=== PATIENT | female | born 1990 | race Caucasian/White ===

== ENCOUNTER → 2017-05-08 | Outpatient (CLI) | payer BC | LOC: LAB 12:01 | PROVIDERS: ATTEND Family Medicine | DX: N91.2 Amenorrhea, unspecified (principal) | CPT/HCPCS: 36415; 84702 ==

== ENCOUNTER → 2017-05-10 | Outpatient (CLI) | payer BC ==
--- NOTE | 2017-05-11 18:34 | DI ---
OBSTETRICAL ULTRASOUND, 05/10/2017 10:06 AM: Clinical History: Verify dates. Previous Exam: None at this facility for this . LMP: 03/20/2017. There is a single live IUP currently in unstable position. Amnionic fluid content is normal. The plac enta is indeterminant in location. heart rate is 149 beats/minute and regular. There is a corpu s luteum cyst of the left ovary. The right ovary is normal. The sac is visualized. CRL measurement is 9 mm. This measurement corresponds to an EGA value of 7 weeks 0 days. The US EDC is 12/24/2017. EDC b y LMP is 12/25/2017. Readin. Single live fetus with unstable presentation and normal amniotic fluid content. 2. The composite EGA is 7 weeks 0 days with an ultrasound EDC of 12/24/2017. Based on the LMP of 03/20, the EDC would be 12/25/2017.
== END ==
LOC: US 09:56
PROVIDERS: ATTEND Family Medicine
DX: Z36 Encounter for antenatal screening of mother (principal)
CPT/HCPCS: 76801

== ENCOUNTER → 2017-06-03 | Outpatient (CLI) | payer BC ==
[2017-06-03 12:03] LABS: HEMATOCRIT 41.8 % (37.0-47.0); HEMOGLOBIN 14.4 g/dL (12.0-16.0); RED BLOOD COUNT 4.88 10^6/uL (4.20-5.40)
[2017-06-03 12:04] LABS: BASOPHILS % (AUTO) 0.7 % (0-1); EOSINOPHILS # (AUTO) 0.19 10*3/UL; EOSINOPHILS % (AUTO) 1.3 % (0-8); LYMPHOCYTES # (AUTO) 2.21 10*3/uL; MEAN CORPUSCULAR HEMOGLOBIN 29.5 PG (27-31); MEAN CORPUSCULAR HGB CONC 34.4 g/dL (33-37); MEAN CORPUSCULAR VOLUME 85.7 FL (81-99); MEAN PLATELET VOLUME 10.2 FL (7.4-12.2); MONOCYTES # (AUTO) 0.82 10*3/UL (0.3-0.8); MONOCYTES % (AUTO) 5.5 % (5-15); NEUTROPHILS # (AUTO) 11.44 10*3/UL; NEUTROPHILS % (AUTO) 76.9 % (50-80); PLATELET MORPHOLOGY COMMENT NORMAL MORPHOLOGY (NORM); RBC MORPHOLOGY COMMENT NORMAL MORPHOLOGY (NORM); WBC MORPHOLOGY COMMENT NORMAL MORPHOLOGY (NORM)
[2017-06-03 12:30] LABS: HIV ANTIBODY NEGATIVE (N); HIV-1 P24 ANTIGEN NEGATIVE (N)
== END ==
LOC: MOB LAB 09:41
PROVIDERS: ATTEND Family Medicine
DX: Z36 Encounter for antenatal screening of mother (principal); Z3A.10 10 weeks gestation of pregnancy
CPT/HCPCS: 36415; 80081; 86900; 86901; 87088; 87491; 87591

== ENCOUNTER 2017-12-27 22:14 | Inpatient (IN) ==
[2017-12-27] MEDS ORDERED: CITRIC ACID/SODIUM CITRATE 30 ML CUP PO PRN (22:58)
[2017-12-27] MEDS ORDERED: TERBUTALINE SULFATE 1 MG/1 ML SDV SUBCUT PRN (22:58)
[2017-12-27] MEDS ORDERED: NORMAL SALINE 10 ML SYRINGE FLUSH IVP PRN (22:58)
[2017-12-27] MEDS ORDERED: Lidocaine 1% 10 MG/ML - 20 ML VIAL SUBCUT PRN (22:58)
[2017-12-27] MEDS ORDERED: BUTORPHANOL TARTRATE 2 MG/1 ML VIAL IVP PRN (22:58)
[2017-12-27] MEDS ORDERED: LIDOCAINE HCL 2 % 10 ML JELLY URO-JECT TOPICAL PRN (22:58)
[2017-12-27] MEDS ORDERED: Phenylephrine Inj 50 MCG in Normal Saline Flush 0.5 ML IVP PRN (22:58)
[2017-12-27] MEDS ORDERED: OXYTOCIN 10 UNIT/1 ML IM PRN (22:58)
[2017-12-27] MEDS ORDERED: Naloxone Inj 0.01 MG in Normal Saline Flush 1 ML IVP PRN (22:58)
[2017-12-27] MEDS ORDERED: NALOXONE 0.4 MG/1 ML VIAL IVP PRN (22:58)
[2017-12-27] MEDS ORDERED: Metoclopramide Inj 10 MG/2 ML VIAL IV PRN (22:58)
[2017-12-27] MEDS ORDERED: CALCIUM CARBONATE 500 MG (TUMS) CHEWABLE TABLET PO PRN (22:58)
[2017-12-27] MEDS ORDERED: METHYLERGONOVINE MALEATE 0.2 MG/1 ML VIAL IM PRN (22:58)
[2017-12-27] MEDS ORDERED: LIDOCAINE W/ SODIUM BICARB 0.5 ML SYR SUBD PRN (22:58)
[2017-12-27] MEDS ORDERED: fentaNYL Inj 100 MCG/2 ML VIAL IV PRN (22:58)
[2017-12-27] MEDS ORDERED: ePHEDrine Inj 5 MG in Normal Saline Flush 1 ML IVP PRN (22:58)
[2017-12-27] MEDS ORDERED: ONDANSETRON 4 MG/2 ML VIAL IVP PRN (22:58)
[2017-12-27] MEDS ORDERED: Carboprost Inj 250 MCG/ML AMP IM PRN (22:58)
[2017-12-27] MEDS ORDERED: diphenhydrAMINE 50 MG/1 ML VIAL IVP PRN (22:58)
[2017-12-27] MEDS ORDERED: CefOXitin Inj 2 GM in Sodium Chloride 0.9% 100 ML IV PRN (22:58)
[2017-12-27] MEDS ORDERED: MISOPROSTOL 200 MCG TABLET RECTAL PRN (22:58)
[2017-12-27] MEDS ORDERED: Nalbuphine Inj 20 MG/ML Ampule IVP PRN (22:58)
[2017-12-27] MEDS ORDERED: Famotidine Inj 20 MG in Normal Saline Flush 10 ML IVP PRN ×4 (22:58)
[2017-12-27] MEDS ORDERED: Oxytocin 20 Units + LR 20 UNIT/1,000 ML BAG IV SCH (23:00)
[2017-12-27 23:17] LABS: Hematocrit [HCT] 40.8 % (37.0-47.0); Hemoglobin [HGB] 13.9 g/dL (12.0-16.0); MEAN CORPUSCULAR HEMOGLOBIN 29.9 PG (27-31); MEAN CORPUSCULAR HGB CONC 34.1 g/dL (33-37); MEAN CORPUSCULAR VOLUME 87.7 FL (81-99); MEAN PLATELET VOLUME 9.8 FL (7.4-12.2); RED BLOOD COUNT 4.65 10^6/uL (4.20-5.40)
[2017-12-27] MEDS: Lactated Ringers-OB Dept 1,000 ML PRIMARY IV SCH (23:21)
[2017-12-28] MEDS ORDERED: Fent/Bupiv 2mcg/0.0625% Epid 250 ML ONE (00:17)
--- NOTE | 2017-12-28 00:34 | CRNA.PROGR ---
Anesthesia Time - - Start date: 12/27/17 End date: 12/28/17 - Procedure/Recovery Time Anesthesia : Time In: 23:51 Anesthesia : Time Out: 06:35 Anesthesia : Total Time: 404 - Total Anesthesia Time Total Anesthesia Time (minutes): 404 - Other Weight: 65.317 kg Height: 5 ft 5 in Body Mass Index (BMI): 23.9 Physical Status: P2 () Anesthesia Type: Epidural
[2017-12-28] MEDS ORDERED: fentaNYL 2 MCG/BUPIVACAINE 0.0625%/NS 0.9% 250 ML BAG EPIDURAL ONE (00:39)
--- NOTE | 2017-12-28 00:39 | CRNA.PROCE ---
Central Neuraxis Block Placemt - - Safety Measures: Site Verified - - Type of Block: Epidural Reason for Block: Analgesia Moniters Used During Block: SPO2, NIBP Positioning: Sitting Skin Prep Used: ChloroPrep (Twice) Draped: Yes Skin Infiltration - Enter Amount Used in Comment Field: 1% Xylocaine (mL): Yes ( 1.0) Spinal Needle Used: 18 Hustead 80 mm (NANDA with Saline. Epidural space times 1. Used 27 gauge spinal needle to make 2 holes in dural to allow spread of epidurally administered meds.) Number of Centimeters Catheter Threaded: 3.5 Bioclusive Dressing Applied: Yes (skin prep under all adhesive.) - - Additional Details: E-natals unremarkable. Dates of 40 and 01/08 noted. Mom is small. Pt reports warm feet with test dose. placed on infusion pump starting at 0027- see orders. Anesthesia Time - Other Weight: 65.317 kg Height: 5 ft 5 in Body Mass Index (BMI): 23.9
[2017-12-28] MEDS ORDERED: NALOXONE 0.4 MG/1 ML VIAL IVP PRN (00:40)
[2017-12-28] MEDS ORDERED: Phenylephrine Inj 50 MCG in Normal Saline Flush 0.5 ML IVP PRN (00:40)
[2017-12-28] MEDS ORDERED: BUTORPHANOL TARTRATE 2 MG/1 ML VIAL IVP PRN (00:40)
[2017-12-28] MEDS ORDERED: Naloxone Inj 0.01 MG in Normal Saline Flush 1 ML IVP PRN (00:40)
[2017-12-28] MEDS ORDERED: diphenhydrAMINE 50 MG/1 ML VIAL IVP PRN ×2 (00:40→08:37)
[2017-12-28] MEDS ORDERED: ePHEDrine Inj 5 MG in Normal Saline Flush 1 ML IVP PRN (00:40)
[2017-12-28] MEDS ORDERED: Nalbuphine Inj 20 MG/ML Ampule IVP PRN ×2 (00:40→08:37)
[2017-12-28] MEDS: Lactated Ringers-OB Dept 1,000 ML PRIMARY IV SCH ×2 (02:08→09:26)
[2017-12-28] MEDS ORDERED: LANOLIN HPA 40 GM TUBE TOPICAL PRN (08:37)
[2017-12-28] MEDS ORDERED: Oxytocin 20 Units + LR 20 UNIT/1,000 ML BAG IV SCH (08:37)
[2017-12-28] MEDS ORDERED: NORMAL SALINE 10 ML SYRINGE FLUSH IVP PRN (08:37)
[2017-12-28] MEDS ORDERED: CALCIUM CARBONATE 500 MG (TUMS) CHEWABLE TABLET PO PRN (08:37)
[2017-12-28] MEDS ORDERED: ACETAMINOPHEN 325 MG TABLET PO PRN (08:37)
[2017-12-28] MEDS ORDERED: ONDANSETRON 4 MG/2 ML VIAL IVP PRN (08:37)
[2017-12-28] MEDS ORDERED: HYDROcodone-APAP 5 MG -325 MG TABLET PO PRN (08:37)
[2017-12-28] MEDS ORDERED: DIPH,PERTUSS,TET(ADACEL) VAC/PF 0.5 ML (Tdap) IM ONE (08:37)
[2017-12-28] MEDS ORDERED: Ondansetron ODT Tab 4 MG TAB PO PRN (08:37)
[2017-12-28] MEDS ORDERED: IBUPROFEN 800 MG TABLET PO PRN (08:37)
[2017-12-28] MEDS ORDERED: LIDOCAINE HCL 2 % 10 ML JELLY URO-JECT TOPICAL PRN (08:37)
[2017-12-28] MEDS ORDERED: diphenhydrAMINE 25 MG CAPSULE PO PRN (08:37)
[2017-12-28] MEDS: GLYCERIN/WITCH HAZEL 1 BOX TOPICAL PRN (09:59)
[2017-12-28] MEDS: BENZOCAINE/MENTHOL SPRAY 56 GM BOTTLE TOPICAL PRN (09:59)
[2017-12-28] MEDS: DOCUSATE 100 MG CAPSULE PO SCH (10:40)
--- NOTE | 2017-12-28 20:43 | OB.DEL.SUM ---
Delivery Note Delivery Summary: Pt is a 27 yo G1 now P1 at 40 3/7 weeks by first trimester u/s who has had latent labor for the past 2-3 days. Her cervix changed from 2 to 2-3 yesterday, so she was sent home with a few norco for pain and strict return precautions. She returned to labor and delivery last noc with frequent, painful contractions. Her cervix was 4/100/0. She was admitted. An epidural was placed for analgesia. She underwent amniotomy with the return of a scant amount of clear fluid at approximately 0030. She progressed on her own to complete cervical dilation and began pushing at 0505. Baby was initially noted to be in the occiput posterior presentation, but with pushing at +3 station, the baby did rotate 180 degrees. With the exception of variable decelerations with most pushes with quick return to baseline, baby tolerated pushing very well. She delivered a viable male infant over an intact perineum at 0630. Baby delivered in the ALEJANDRO presentation. The shoulders were delivered without difficulty. Part of the umbilical cord was draped around the baby's shoulders. The nose and mouth were suctioned with a bulb suction. Baby's was placed on mom's chest. Cord clamping was delayed for 45 seconds. The cord was then doubly clamped by myself and cut by the father of the baby. Cord blood and cord gases were obtained for analysis. The placenta delivered a short time later, spontaneously and intact, with a 3 vessel cord. She had brisk uterine bleeding, so the usual 20 mU of pitocin were infused. The bleeding continued to be heavier than normal , so 1000 mcg of cytotec were given rectally. Her bleeding decreased to more of a normal flow. The vagina and perineum were examined and bilateral labia minora lacerations were noted and repaired in the normal fashion with 3-0 vicryl rapide suture. There was excellent hemostasis.The pt's bladder was drained with a red rubber catheter with sterile technique. EBL 350cc. Baby weighed 7#5oz. Apgars were 8 at 1 minute and 10 at 5 minutes. Both mom and baby tolerated delivery well and are in stable condition at this time.
[2017-12-28] MEDS ORDERED: fentaNYL Inj 100 MCG/2 ML VIAL ONE (22:29)
[2017-12-29 04:48] LABS: Hemoglobin [HGB] 11.6 g/dL (12.0-16.0); MEAN CORPUSCULAR HEMOGLOBIN 29.7 PG (27-31); MEAN CORPUSCULAR HGB CONC 33.1 g/dL (33-37); MEAN CORPUSCULAR VOLUME 89.5 FL (81-99); MEAN PLATELET VOLUME 9.8 FL (7.4-12.2); RED BLOOD COUNT 3.91 10^6/uL (4.20-5.40)
[2017-12-29] MEDS: DOCUSATE 100 MG CAPSULE PO SCH ×2 (08:09→08:41)
[2017-12-29] MEDS: Prenatal Multivitamin Tab 1 TAB TAB PO SCH (08:41)
[2017-12-30] MEDS: DOCUSATE 100 MG CAPSULE PO SCH ×2 (07:31→08:52)
[2017-12-30] MEDS: BENZOCAINE/MENTHOL SPRAY 56 GM BOTTLE TOPICAL PRN (08:52)
[2017-12-30] MEDS: Prenatal Multivitamin Tab 1 TAB TAB PO SCH (08:52)
[2017-12-30] MEDS: GLYCERIN/WITCH HAZEL 1 BOX TOPICAL PRN (08:52)
[2017-12-30 09:11] VITALS: BP 122/84; RESP 16; TEMP 97.4; O2SAT 100
--- NOTE | 2018-01-11 19:39 | OB.PROGRES ---
Subjective Post Op Day: 1 Pain Management: PO Forman Catheter: No Flatus: Yes Diet: Regular Feeding Method: Exculsively Ambulating: Yes Concerns / Additional Information: Moderate lochia. Baby isn't breast feeding the best. Pt is a little concerned about going home (lives 90 minutes away) today secondary to this. Bilirubin is also high intermediate risk, so will need to have another bili drawn tomorrow. Objective - General General Appearance: POSITIVE: No Acute Distress, Cooperative - Cardiovacular Cardiovascular Exam: POSITIVE: RRR, No Murmur Edema: +1 Pedal Edema Extremities: Negative Andres's - Bilaterally - Respiratory Respiratory Exam: POSITIVE: Clear to Auscultation - Bilaterally, Breathing Non Labored - Abdomen Bowel Sounds: Present Assesstment / Plan (1) Status post vaginal delivery Status: Acute Assessment / Plan: -routine cares. -rh positive. -rubella immune. -breast feeding support needed, will keep in hospital additional day for this. -likely d/c home tomorrow.
--- NOTE | 2018-01-11 19:46 | DCSUMMARY ---
Hospitalization Summary Admit Date: 01/24/18 Discharge Date: 01/27/18 Primary Diagnosis:: IUP 40 3/7 weeks Secondary Diagnosis:: GBS negative Delivery Type: Vaginal Hospital Course: Pt was admitted in active labor. Had uneventful labor and delivery. For details of her delivery, please see delivery summary dictated elsewhere in the chart. / Postop Complications: Pt had an uneventful course. On the day of discharge, baby was nursing better, pain was well controlled, her lochia was normal and she was independent in her activities of daily living. She was requesting discharge home. Complications: none Exam - Vitals Vital Signs: Vital Signs Temperature 97.4 F Temperature Source Oral Pulse Rate [Pulse Oximeter] 78 Pulse Rate 84 Respiratory Rate 16 Blood Pressure [Right Arm] 122/84 Blood Pressure 125/75 Pulse Ox 100 Oxygen Delivery Method Room Air Height 5 ft 5 in Weight 144 lb - General General Appearance: No Acute Distress, Cooperative - Head Head Exam: Normal Inspection - Respiratory Respiratory Exam: POSITIVE: Clear to Auscultation - Bilaterally, Breathing Non Labored - Cardiovascular Cardiovascular Exam: POSITIVE: RRR, No Murmur - GI/Abdominal GI/Abdominal Exam: POSITIVE: Normal Bowel Sounds, Non Tender, Non Distended, Soft - Extremities Extremities Exam: POSITIVE: Normal Inspection, Negative Andres's sign, +1 Edema. NEGATIVE: Calf Tenderness - Neurological Neurological Exam: POSITIVE: Alert, Oriented x 3 - Psychiatric Psychiatric Exam: POSITIVE: Normal Affect, Normal Mood - Integumentary Integumentary Exam: POSITIVE: Normal Color, Warm Patient Problems - Patient Problem List (1) Status post vaginal delivery Status: Acute Category: Medical
== END 2017-12-30 11:00 | disposition home or self-care (01) | DRG 775 ==
LOC: OBOP 22:14 → OBIP 22:58
PROVIDERS: ADMIT Family Medicine; ATTEND Family Medicine

== ENCOUNTER 2019-09-06 16:00 | Inpatient (IN) ==
[2019-09-06] MEDS ORDERED: CefOXitin Inj 2 GM in Sodium Chloride 0.9% 100 ML IV PRN (17:32)
[2019-09-06] MEDS ORDERED: LIDOCAINE HCL 2 % 10 ML JELLY URO-JECT TOPICAL PRN (17:32)
[2019-09-06] MEDS ORDERED: TERBUTALINE SULFATE 1 MG/1 ML SDV SUBCUT PRN (17:32)
[2019-09-06] MEDS ORDERED: Misoprostol Tab 100 MCG TAB VAGINAL PRN (17:32)
[2019-09-06] MEDS ORDERED: diphenhydrAMINE 50 MG/1 ML VIAL IVP PRN (17:32)
[2019-09-06] MEDS ORDERED: fentaNYL Inj 100 MCG/2 ML VIAL IV PRN (17:32)
[2019-09-06] MEDS ORDERED: CITRIC ACID/SODIUM CITRATE 30 ML CUP PO PRN (17:32)
[2019-09-06] MEDS ORDERED: OXYTOCIN 10 UNIT/1 ML IM PRN (17:32)
[2019-09-06] MEDS ORDERED: METHYLERGONOVINE MALEATE 0.2 MG/1 ML VIAL IM PRN (17:32)
[2019-09-06] MEDS ORDERED: Metoclopramide Inj 10 MG/2 ML VIAL IV PRN (17:32)
[2019-09-06] MEDS ORDERED: NALOXONE 0.4 MG/1 ML VIAL IVP PRN (17:32)
[2019-09-06] MEDS ORDERED: MISOPROSTOL 200 MCG TABLET RECTAL PRN (17:32)
[2019-09-06] MEDS ORDERED: Zolpidem Tab 5 MG TAB PO PRN (17:32)
[2019-09-06] MEDS ORDERED: LIDOCAINE W/ SODIUM BICARB 0.5 ML SYR SUBD PRN (17:32)
[2019-09-06] MEDS ORDERED: Lidocaine 1% 10 MG/ML - 20 ML VIAL SUBCUT PRN (17:32)
[2019-09-06] MEDS ORDERED: Nalbuphine Inj 20 MG/ML Ampule IVP PRN (17:32)
[2019-09-06] MEDS ORDERED: Phenylephrine Inj 50 MCG in Sodium Chloride 0.9% vial 0.5 ML IVP PRN (17:32)
[2019-09-06] MEDS ORDERED: ONDANSETRON 4 MG/2 ML VIAL IVP PRN (17:32)
[2019-09-06] MEDS ORDERED: CALCIUM CARBONATE 500 MG (TUMS) CHEWABLE TABLET PO PRN (17:32)
[2019-09-06] MEDS ORDERED: BUTORPHANOL TARTRATE 2 MG/1 ML VIAL IVP PRN (17:32)
[2019-09-06] MEDS ORDERED: Naloxone Inj 0.01 MG in Sodium Chloride 0.9% vial 1 ML IVP PRN (17:32)
[2019-09-06] MEDS ORDERED: FAMOTIDINE 20 MG/2 ML VIAL IVP PRN ×2 (17:32)
[2019-09-06] MEDS ORDERED: Carboprost Inj 250 MCG/ML AMP IM PRN (17:32)
[2019-09-06] MEDS ORDERED: Misoprostol Tab 100 MCG TAB VAGINAL ONE (17:42)
[2019-09-06] MEDS ORDERED: Oxytocin 20 Units + LR 20 UNIT/1,000 ML BAG IV SCH ×2 (17:45)
[2019-09-06 20:57] LABS: Hematocrit [HCT] 39.5 % (37.0-47.0); Hemoglobin [HGB] 13.2 g/dL (12.0-16.0); MEAN CORPUSCULAR HGB CONC 33.4 g/dL (33-37); MEAN CORPUSCULAR VOLUME 89.2 FL (81-99); MEAN PLATELET VOLUME 10.3 FL (7.4-12.2); RED BLOOD COUNT 4.43 10^6/uL (4.20-5.40)
[2019-09-06] MEDS: Lactated Ringers-OB Dept 1,000 ML PRIMARY IV SCH (21:19)
[2019-09-07] MEDS: Lactated Ringers-OB Dept 1,000 ML PRIMARY IV SCH ×3 (07:00→14:08)
[2019-09-07] MEDS ORDERED: Fent/Bupiv 2mcg/0.0625% Epid 250 ML ONE (07:33)
[2019-09-07] MEDS ORDERED: fentaNYL 2 MCG/BUPIVACAINE 0.0625%/NS 0.9% 250 ML BAG EPIDURAL ONE (07:42)
[2019-09-07] MEDS ORDERED: LANOLIN HPA 40 GM TUBE TOPICAL PRN (12:43)
[2019-09-07] MEDS ORDERED: BENZOCAINE/MENTHOL SPRAY 56 GM BOTTLE TOPICAL PRN (12:43)
[2019-09-07] MEDS ORDERED: Nalbuphine Inj 20 MG/ML Ampule IVP PRN (12:43)
[2019-09-07] MEDS ORDERED: Oxytocin 20 Units + LR 20 UNIT/1,000 ML BAG IV SCH (12:43)
[2019-09-07] MEDS ORDERED: CALCIUM CARBONATE 500 MG (TUMS) CHEWABLE TABLET PO PRN (12:43)
[2019-09-07] MEDS ORDERED: Lidocaine 1% 10 MG/ML - 20 ML VIAL INTRADERM PRN (12:43)
[2019-09-07] MEDS ORDERED: HYDROcodone-APAP 5 MG -325 MG TABLET PO PRN (12:43)
[2019-09-07] MEDS ORDERED: ONDANSETRON 4 MG/2 ML VIAL IVP PRN (12:43)
[2019-09-07] MEDS ORDERED: DIPH,PERTUSS,TET(ADACEL) VAC/PF 0.5 ML (Tdap) IM ONE (12:43)
[2019-09-07] MEDS ORDERED: diphenhydrAMINE 25 MG CAPSULE PO PRN (12:43)
[2019-09-07] MEDS ORDERED: Ondansetron ODT Tab 4 MG TAB PO PRN (12:43)
[2019-09-07] MEDS ORDERED: ACETAMINOPHEN 325 MG TABLET PO PRN (12:43)
[2019-09-07] MEDS ORDERED: diphenhydrAMINE 50 MG/1 ML VIAL IVP PRN (12:43)
[2019-09-07] MEDS ORDERED: LIDOCAINE HCL 2 % 10 ML JELLY URO-JECT TOPICAL PRN (12:43)
[2019-09-07] MEDS: GLYCERIN/WITCH HAZEL 1 BOX TOPICAL PRN (14:11)
[2019-09-07] MEDS: IBUPROFEN 800 MG TABLET PO PRN (21:16)
[2019-09-08] MEDS: IBUPROFEN 800 MG TABLET PO PRN (05:11)
[2019-09-08 05:31] VITALS: O2SAT 98
[2019-09-08 05:33] LABS: Hematocrit [HCT] 39.4 % (37.0-47.0); Hemoglobin [HGB] 13.1 g/dL (12.0-16.0); MEAN CORPUSCULAR HGB CONC 33.2 g/dL (33-37); MEAN PLATELET VOLUME 10.1 FL (7.4-12.2); RED BLOOD COUNT 4.38 10^6/uL (4.20-5.40)
[2019-09-08 08:30] VITALS: BP 124/76; RESP 18; TEMP 97.6
[2019-09-08] MEDS ORDERED: DOCUSATE 100 MG CAPSULE PO SCH (09:00)
[2019-09-08] MEDS ORDERED: Prenatal Multivitamin Tab 1 TAB TAB PO SCH (09:00)
[2019-09-08] MEDS: GLYCERIN/WITCH HAZEL 1 BOX TOPICAL PRN (13:09)
== END 2019-09-08 14:30 | disposition home or self-care (01) | DRG 807 ==
LOC: OBIP 19:52
PROVIDERS: ADMIT Family Medicine; ATTEND Family Medicine